=== PATIENT | male | born 1990 | race Caucasian/White ===

== ENCOUNTER 2017-11-19 00:40 | Emergency (ER) | payer OTHER ==
[~2017-11-19] VITALS: Ht 177.8 cm; Wt 122.5 kg
[2017-11-19 00:51] VITALS: BP 139/90; Ht 177.8 cm; Wt 122.5 kg
== END 2017-11-19 01:44 | disposition home or self-care (01) ==
LOC: ED 00:40
DX: M23.92 Unspecified internal derangement of left knee (principal)

== ENCOUNTER 2017-11-25 12:44 | Emergency (ER) | payer OTHER ==
[~2017-11-25] VITALS: Ht 177.8 cm; Wt 122.5 kg
[2017-11-25 13:00] VITALS: BP 129/81; Ht 177.8 cm; Wt 122.5 kg
== END 2017-11-25 14:29 | disposition home or self-care (01) ==
LOC: ED 12:44
DX: M25.562 Pain in left knee (principal); M25.462 Effusion, left knee

== ENCOUNTER 2019-01-27 13:20 | Emergency (ER) | payer OTHER ==
[~2019-01-27] VITALS: Ht 180.3 cm; Wt 110.2 kg
[2019-01-27 13:33] VITALS: Ht 180.3 cm; Wt 110.2 kg
[2019-01-27 14:17] LABS: BASOPHIL % 0.5 % (0-2); PLATELET COUNT 225 x10^3mcL (130-400); RED CELL DISTRIBUTION WIDTH 13.6 % (11.5-14.5)
[2019-01-27 14:18] LABS: microscopic required? NO
[2019-01-27 14:23] LABS: UA SPECIFIC GRAVITY 1.025 (1.005-1.035); urine erythrocyte NEGATIVE (NEGATIVE)
[2019-01-27 14:24] LABS: CALCIUM 8.8 mg/dL (8.5-10.1); CARBON DIOXIDE 27.8 mmol/L (21-32); CHLORIDE SERUM 102 mmol/L (98-107); CREATININE SERUM 0.9 mg/dL (0.7-1.3); GFR1 > 60 mL/min; GLUCOSE SERUM 87 mg/dL (74-106); POTASSIUM SERUM 3.7 mmol/L (3.5-5.1); SODIUM SERUM 138 mmol/L (136-145)
[2019-01-27 14:28] LABS: ALBUMIN 3.8 g/dL (3.4-5.0); ALKALINE PHOSPHATASE 78 U/L (46-116); ALT/SGPT 62 U/L (16-63); AST/SGOT 16 U/L (15-37); BILIRUBIN TOTAL 0.6 mg/dL (0.20-1.00); LIPASE 65 IU/L (73-393); TOTAL PROTEIN, SERUM 7.4 g/dL (6.4-8.2)
[2019-01-27 15:28] VITALS: BP 145/82
== END 2019-01-27 15:27 | disposition home or self-care (01) ==
LOC: ED 13:20
PROVIDERS: Emergency Medicine
DX: R10.84 Generalized abdominal pain (principal); R19.7 Diarrhea, unspecified; F17.210 Nicotine dependence, cigarettes, uncomplicated; Z98.890 Other specified postprocedural states
CPT/HCPCS: 36415; Q0162

== ENCOUNTER 2019-03-25 14:47 | Emergency (ER) | payer OTHER ==
[~2019-03-25] VITALS: Ht 177.8 cm; Wt 110.7 kg
[2019-03-25 15:10] VITALS: Ht 177.8 cm; Wt 110.7 kg
[2019-03-25 17:00] VITALS: BP 131/60
== END 2019-03-25 17:00 | disposition home or self-care (01) ==
LOC: ED 14:47
DX: J03.90 Acute tonsillitis, unspecified (principal); Z98.890 Other specified postprocedural states
CPT/HCPCS: J0561; J1100; J1885

== ENCOUNTER 2019-04-21 14:37 | Emergency (ER) | payer OTHER ==
[~2019-04-21] VITALS: Ht 180.3 cm; Wt 112.0 kg
[2019-04-21 14:39] VITALS: BP 121/71; Ht 180.3 cm; Wt 112.0 kg
== END 2019-04-21 16:00 | disposition home or self-care (01) ==
LOC: ED 14:37
DX: S61.411A Laceration without foreign body of right hand, initial encounter (principal); Z98.890 Other specified postprocedural states; W45.8XXA Other foreign body or object entering through skin, initial encounter; Y93.89 Activity, other specified; Y92.89 Other specified places as the place of occurrence of the external cause; Y99.8 Other external cause status
CPT/HCPCS: 90715; J2001